=== PATIENT | female | born 1960 | race Native Hawaiian/Other Pacific Islander ===

== ENCOUNTER 2021-11-23 13:24 | Emergency (ER) | payer OTHER ==
[~2021-11-23] VITALS: Ht 165.1 cm; Wt 77.6 kg
[2021-11-23 13:31] VITALS: BP 152/75; TEMP 98.5
== END 2021-11-23 15:50 | disposition home or self-care (01) ==
LOC: ED 13:24
DX: J32.8 Other chronic sinusitis (principal); M54.31 Sciatica, right side; F17.210 Nicotine dependence, cigarettes, uncomplicated
CPT/HCPCS: 81000; 96372; 99283; J1885